=== PATIENT | female | born 1935 ===

== ENCOUNTER 2017-04-15 07:55 | Day surgery (SDC) | payer MEDICARE ==
[2015-08-01 10:09] VITALS: BMI 29.2
[2017-04-15] MEDS ORDERED: Propofol 10 mg/ml Inj (20 ML) ONE (09:20)
[2017-04-15] MEDS ORDERED: Etomidate 20 mg/10ml Inj IV ONE (09:22)
[2017-04-15] MEDS ORDERED: Lactated Ringer's 1,000 ML IV ONE (09:25)
--- NOTE | 2017-04-15 09:25 | CP.SDSHP ---
Same Day Surgery H & P - History Proposed Procedure: EGD Pre-Op Diagnosis: SEE NOTES - Previous Medical/Surgical History Cardiac: Hypertension Endocrine/Metabolic: Diabetes Misc: Other Pain: 4.Moderate Pain - Allergies Allergies: Allergies pollen extracts Allergy (Verified 08/01/15 10:10) CONGESTION - Physical Exam General Appearance: N Vital Signs: Vital Signs 04/15/17 08:22 Temperature 97.6 F Pulse Rate 63 Respiratory 19 Rate Blood Pressure 109/65 O2 Sat by Pulse 99 Oximetry Mental Status: Alert & Oriented x3 Neuro: WNL Heart: Other Lungs: WNL GI: Other - {Optional Preform as Required} Breast: WNL Abdomen: Other Rectal: Other Integument: WNL : WNL Ortho: WNL ENT: WNL - Impression Pt. Evaluated Today:Candidate for Anesthesia & Procedure: Yes - Date & Time Time: 09:25 Short Stay Discharge - Short Stay Discharge Admitting Diagnosis/Reason for Visit: GASTRIC POLYP Disposition: HOME/ ROUTINE
[2017-04-15] MEDS ORDERED: Belladonna-Phenobarbital PO STA (09:26)
[2017-04-15 10:34] VITALS: TEMP 96.9; O2SAT 100
[2017-04-15 11:11] VITALS: BP 155/83; PULSE 73; RESP 13
== END 2017-04-15 11:05 | disposition home or self-care (01) ==
LOC: C.ENDO 07:55
PROVIDERS: ATTEND Specialist
DX: K29.00 Acute gastritis without bleeding (principal); K44.9 Diaphragmatic hernia without obstruction or gangrene; K25.7 Chronic gastric ulcer without hemorrhage or perforation; K29.80 Duodenitis without bleeding
CPT/HCPCS: 43239; 82948; 88305; 88342; J2704; J7120

== ENCOUNTER 2017-08-17 07:39 | Day surgery (SDC) | payer MEDICARE ==
[2015-08-01 10:09] VITALS: BMI 29.2
[2017-08-17 08:07] VITALS: O2SAT 100
--- NOTE | 2017-08-17 09:11 | CP.SDSHP ---
Same Day Surgery H & P - History Proposed Procedure: COLONSCOPY Pre-Op Diagnosis: SEE NOTES - Previous Medical/Surgical History Cardiac: Hypertension Pulmonary: Asthma Endocrine/Metabolic: Diabetes, Other Misc: Other Pain: 2.Mild Pain - Allergies Allergies: Allergies pollen extracts Allergy (Verified 08/01/15 10:10) CONGESTION - Physical Exam General Appearance: N Vital Signs: Vital Signs 08/17/17 08:01 Temperature 97 F L Pulse Rate 65 Respiratory 18 Rate Blood Pressure 143/61 O2 Sat by Pulse 100 Oximetry Mental Status: Alert & Oriented x3 Neuro: WNL Heart: Other Lungs: Other GI: Other - {Optional Preform as Required} Breast: WNL Abdomen: Other Rectal: Other Integument: WNL : WNL Ortho: WNL ENT: WNL - Impression Pt. Evaluated Today:Candidate for Anesthesia & Procedure: Yes - Date & Time Time: 09:11 Short Stay Discharge - Short Stay Discharge Admitting Diagnosis/Reason for Visit: SCREENING Disposition: HOME/ ROUTINE
[2017-08-17] MEDS ORDERED: Belladonna-Phenobarbital PO STA (09:12)
[2017-08-17] MEDS ORDERED: Propofol 10 mg/ml Inj (20 ML) ONE (09:14)
[2017-08-17] MEDS ORDERED: Glucagon Recombinant 1 mg Inj ONE (09:23)
[2017-08-17 09:40] VITALS: TEMP 97.8
[2017-08-17 10:27] VITALS: BP 120/56; PULSE 79; RESP 15
== END 2017-08-17 10:27 | disposition home or self-care (01) ==
LOC: C.ENDO 07:39
PROVIDERS: ATTEND Specialist
DX: Z12.11 Encounter for screening for malignant neoplasm of colon (principal); K57.30 Diverticulosis of large intestine without perforation or abscess without bleeding; K64.8 Other hemorrhoids; K64.4 Residual hemorrhoidal skin tags; E11.9 Type 2 diabetes mellitus without complications; I10 Essential (primary) hypertension; J45.909 Unspecified asthma, uncomplicated; K52.9 Noninfective gastroenteritis and colitis, unspecified
CPT/HCPCS: 45380; 82948; 88305; J1610; J2704; J7040

== ENCOUNTER 2018-06-30 07:36 | Day surgery (SDC) | payer MEDICARE ==
[2018-06-30 07:56] VITALS: BMI 27.4
--- NOTE | 2018-06-30 09:33 | CP.SDSHP ---
Same Day Surgery H & P - History Proposed Procedure: EGD Pre-Op Diagnosis: SEE NOTES - Previous Medical/Surgical History Cardiac: Hypertension Pulmonary: Asthma Endocrine/Metabolic: Diabetes Misc: Other Pain: 4.Moderate Pain - Allergies Allergies: Allergies pollen extracts Allergy (Verified 06/30/18 07:55) CONGESTION - Physical Exam General Appearance: N Vital Signs: Vital Signs 06/30/18 08:11 Temperature 98.2 F Pulse Rate 78 Respiratory 18 Rate Blood Pressure 145/69 O2 Sat by Pulse 99 Oximetry Mental Status: Alert & Oriented x3 Neuro: WNL Lungs: Other GI: Other - {Optional Preform as Required} Breast: WNL Abdomen: Other Rectal: Other Integument: WNL : WNL Ortho: WNL ENT: WNL - Impression Pt. Evaluated Today:Candidate for Anesthesia & Procedure: Yes - Date & Time Time: 09:33 Short Stay Discharge - Short Stay Discharge Admitting Diagnosis/Reason for Visit: GASTRIC ULCER Disposition: HOME/ ROUTINE
[2018-06-30] MEDS ORDERED: Lidocaine Hydrochloride 5 ML INJ ONE (09:49)
[2018-06-30] MEDS ORDERED: Propofol 10 mg/ml Inj (20 ML) ONE (09:49)
[2018-06-30 10:22] VITALS: O2SAT 100
[2018-06-30] MEDS ORDERED: Belladonna-Phenobarbital PO ONE (11:00)
[2018-06-30 11:27] VITALS: BP 155/61; PULSE 69; RESP 19; TEMP 97.9
== END 2018-06-30 11:20 | disposition home or self-care (01) ==
LOC: C.ENDO 07:36
PROVIDERS: ATTEND Specialist
DX: K25.9 Gastric ulcer, unspecified as acute or chronic, without hemorrhage or perforation (principal); K31.7 Polyp of stomach and duodenum; K29.70 Gastritis, unspecified, without bleeding
CPT/HCPCS: 43250; 82948; 88305; 88342; J2704